=== PATIENT | male | born 1980 | race Two or more races ===

== ENCOUNTER 2023-07-05 14:36 | Emergency (ER) | payer OTHER ==
[~2023-07-05] VITALS: Ht 188 cm; Wt 123.4 kg
[2023-07-05] MEDS ORDERED: TRUVADA 200 MG1 EACH PO (16:10)
== END 2023-07-05 20:45 | disposition home or self-care (01) ==
LOC: ER 14:37
DX: J06.9 Acute upper respiratory infection, unspecified (principal)
CPT/HCPCS: 36415; 96372; 99282; J1100